=== PATIENT | male | born 1970 | race Caucasian/White ===

== ENCOUNTER 2016-10-08 06:30 | Emergency (ER) | payer BC, MEDICAID, OTHER, SELFPAY ==
[~2016-10-08] VITALS: Ht 182.9 cm; Wt 87.0 kg
[2016-10-08 06:31] VITALS: BP 179/109
== END 2016-10-08 07:09 | disposition home or self-care (01) ==
LOC: ED 06:58
DX: T15.02XA Foreign body in cornea, left eye, initial encounter (principal); X58.XXXA Exposure to other specified factors, initial encounter; Y93.89 Activity, other specified; Y92.89 Other specified places as the place of occurrence of the external cause; Y99.8 Other external cause status
CPT/HCPCS: 65222

== ENCOUNTER 2017-09-24 10:06 | Emergency (ER) | payer MEDICAID ==
[~2017-09-24] VITALS: Ht 182.9 cm; Wt 90.6 kg
[2017-09-24] MEDS ORDERED: OXYcodone/APAP 5/325MG TABLET ONE (10:55)
[2017-09-24] MEDS ORDERED: OXYcodone/APAP 5/325MG TABLET PO ONE (11:00)
[2017-09-24 12:30] VITALS: BP 169/115
== END 2017-09-24 12:50 | disposition home or self-care (01) ==
LOC: ED 10:54
DX: G89.29 Other chronic pain (principal); M25.511 Pain in right shoulder; I10 Essential (primary) hypertension; M19.90 Unspecified osteoarthritis, unspecified site
CPT/HCPCS: 99284